=== PATIENT | male | born 2000 | race Two or more races ===

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

== ENCOUNTER 2022-10-21 19:38 | Emergency (ER) | payer OTHER, SELFPAY ==
[2022-10-21 21:09] VITALS: BP 110/62; PULSE 72; RESP 18; TEMP 37.2; O2SAT 72; BMI 28.8
[2022-10-21 22:15] LABS: Alanine Aminotransferase 42 U/L (0-40); Albumin Level 4.6 g/dL (3.5-5.0); Alkaline Phosphatase 74 U/L (39-117); Anion Gap 13 (12-20); Aspartate Amino Transferase 34 U/L (5-37); Bilirubin Total 1.3 mg/dL (0.0-1.0); Blood Urea Nitrogen 10 mg/dL (9-16); Calcium 9.7 mg/dL (8.4-10.2); Carbon Dioxide 22 mmol/L (22-29); Chloride 108 mmol/L (96-108); Creatinine Clr Calc Pharmacy 137.9; Estimated Glomerular Filt Rate > 60; Glucose Random 86 mg/dL (60-115); Potassium 3.9 mmol/L (3.3-5.1); Sodium 139 mmol/L (135-145); Total Protein 7.6 g/dL (6.5-8.0)
[2022-10-21 22:27] LABS: Basophils Percent Auto 0.4 % (0-2); Eosinophils Absolute Auto 0.3 X10*3/uL (0.0-0.4); Eosinophils Percent Auto 3.1 % (0-4); Hematocrit 38.7 % (42.0-52.0); Hemoglobin 11.6 g/dl (14.0-18.0); Imm Gran Abs Auto 0.02 X10*3/uL (0.00-0.03); Imm Gran Pct Auto 0.2 % (0.0-0.4); Lymphocytes Absolute Auto 2.4 X10*3/uL (1.2-4.9); Lymphocytes Percent Auto 26.1 % (20-40); MANUAL DIFF FLAG SCAN; Mean Corpuscular Hemoglobin 18.1 pg (27.0-33.0); Monocytes Percent Auto 10.4 % (2-11); NRBC Pct Auto 0.2 /100WBC (0.0-0.2); Neutrophils Absolute Auto 5.6 x10*3/uL (2.0-8.3); Neutrophils Percent Auto 59.8 % (45-73); PLT CLUMP 1; Red Blood Count 6.42 X10*6/uL (4.60-5.80); Red Cell Distribution Width 18.2 % (11.0-16.0); SCAN SMEAR FLAG 1
[2022-10-21 22:49] LABS: Mean Corpuscular Volume 60.3 fL (80.0-98.0)
[2022-10-21 22:50] LABS: Platelet Count 239 X10*3/uL (160-400); White Blood Count 9.3 X10*3/uL (4.8-10.8)
[2022-10-21 22:52] LABS: SLIDE REVIEW VERIFIED
--- NOTE | 2022-10-22 01:35 | ED.SKABFB ---
HPI - Skin/Abscess/Foreign Bdy General Chief complaint: Skin/Abscess/Foreign Body Stated complaint: Abscess on stomach Time Seen by Provider: 10/22/22 01:18 Source: patient Mode of arrival: ambulatory Limitations: no limitations History of Present Illness HPI narrative: 22 yo male no sig PMH here with c/o abdominal wall infection - has been on doxycycline for a couple of days and told to put warm compresses on lesion. He had plucked two ingrown hairs out and then lesion developed. He started the doxy and then the pustule erupted and he has drainage. UC started the antibiotics. He feels okay but they wanted a second opinion as the pustule opened and they thought the doxy made it happen and that was bad. MD complaint: abscess/boil Onset (ago): day(s) (3) Tetanus up to date: yes Location: generalized (abdomen) Severity: moderate Quality: aching and constant Pain Consistency: intermittent Relieving factors: rest Exacerbating factors: palpation Context: recent antibiotic Associated symptoms: denies other symptoms Treatments prior to arrival: bandages, attempted to drain pus at home and antibiotic Related Data Previous Rx's Medication Instructions Recorded permethrin 5 % topical cream 1 appl topical ONCE 1 day #60 grams 01/12/20 hydrocortisone 2.5 % topical 1 appl topical BID #453.6 grams 03/09/20 ointment albuterol sulfate 90 mcg/actuation 2 puff inhalation Q4-6H PRN 09/13/20 aerosol inhaler (ProAir HFA) shortness of breath or wheezing #8.5 grams erythromycin 5 mg/gram (0.5 %) eye 0.5 inch ophthalmic (eye) TID #1 g 11/24/20 ointment sulfamethoxazole 800 1 tab PO BID 7 days #14 tabs 02/16/21 mg-trimethoprim 160 mg tablet (Bactrim DS) naproxen 375 mg tablet 375 mg PO BID PRN pain 10 days #20 05/24/21 tabs ibuprofen 600 mg tablet 600 mg PO Q6H PRN pain #20 tabs 07/01/21 ketoconazole 2 % shampoo 1 appl topical 2XW 2 weeks #120 mL 12/05/21 cephalexin 500 mg capsule 500 mg PO QID 7 days #28 caps 10/22/22 Allergies Allergy/AdvReac Type Severity Reaction Status Date / Time amoxicillin [AMOXICILLIN] Allergy Unknown UNKNOWN, Verified 02/21/22 09:58 hives Review of Systems Review of Systems: Constitutional : No Fever, No Chills ENT/Mouth : No sore throat, No Rhinorrhea Eyes: No Eye Pain, No Swelling, No Redness Cardiovascular : No Chest Pain, No SOB Respiratory : No Cough, No Sputum Gastrointestinal : No Nausea, No Vomiting, No Diarrhea, No abdominal Pain Genitourinary : No Dysuria, No Hematuria Musculoskeletal : No joint pain, No Myalgias, No Joint Swelling Skin : pos Skin Lesions, positive skin rash Neuro : No Weakness, No Numbness, No Headache Psych : No Anxiety, No Depression All other systems reviewed and are negative [facility] Past Medical History Attestation statement: The following information was validated with the patient. Medical History Asthma COVID-19 vaccine administered No known health problems Surgical History No pertinent past surgical history Family History Family History (Updated 02/21/22 @ 09:57 by Miriam Santos MA) Mother No problems noted. Father No problems noted. Social History Social History Household Members: Family Housing: Apartment Are you a primary day care provider to a significant other at home: No Do you presently have visiting nurse or other home services: No Advance Directives: No Advance Directives Information Provided: No Cognitive needs: No Hearing needs: No Vision needs: No Physical Exam Vital Signs: Vital Signs: Last Vital Signs Temp 99.0 F 10/21/22 21:09 Pulse 72 10/21/22 21:09 Resp 18 10/21/22 21:09 BP 110/62 10/21/22 21:09 Pulse Ox 72 L 10/21/22 21:09 O2 Del Method Room Air 10/21/22 21:09 BMI result Body Mass Index 28.8 Appearance: Alert. Oriented X3. No acute distress. Eyes: Pupils equal, round and reactive to light. ENT: Pharynx normal. Neck: Normal inspection. Neck supple. CVS: Normal heart rate and rhythm. Pulses normal. Respiratory: No respiratory distress. Breath sounds normal. Abdomen: Soft and 3cm area firm indurated no ext cellulitis open dime sized draining area ss no fluctuance no sig warmth or erythema Skin: Skin warm and dry. Normal skin color. Normal skin turgor. Extremities: No lower extremity edema. Neuro: Oriented X 3. No motor deficit. No sensory deficit. Medical Decision Making Medical Decision Making [facility] Narrative: 22 yo male draining abscess on abdominal wall not toxic no systemic symptoms about 3cm indurated skin lesion but no fluctuance and no further purulence noted. he is not toxic, well hyrdated. He can be started on cephalexin and continue doxy - send home with precautions. I can feel entirety of area doubt any deep extension. Differential Diagnosis Differential Diagnoses: The differential diagnosis associated with the presentation includes abscess, cellulitis Admission/Observation Consideration of admission/observation: Escalation of care including admission/observation considered not toxic, no systemic symptoms, draining wound and can tolerate PO stable for outpatient management Lab Data 10/21/22 21:47 10/21/22 21:47 Labs: Lab Results 10/21/22 Range/Units 21:47 WBC 9.3 (4.8-10.8) X10*3/uL RBC 6.42 H (4.60-5.80) X10*6/uL Hgb 11.6 L (14.0-18.0) g/dl Hct 38.7 L (42.0-52.0) % MCV 60.3 L (80.0-98.0) fL MCH 18.1 L (27.0-33.0) pg MCHC 30.0 L (31.0-36.0) g/dl RDW 18.2 H (11.0-16.0) % Plt Count 239 (160-400) X10*3/uL MPV Not Reportable Immature Gran % (Auto) 0.2 (0.0-0.4) % Neut % (Auto) 59.8 (45-73) % Lymph % (Auto) 26.1 (20-40) % [place] % (Auto) 10.4 (2-11) % Eos % (Auto) 3.1 (0-4) % Baso % (Auto) 0.4 (0-2) % Lymph # (Auto) 2.4 (1.2-4.9) X10*3/uL [place] # (Auto) 1.0 (0.1-1.2) X10*3/uL Eos # (Auto) 0.3 (0.0-0.4) X10*3/uL Baso # (Auto) 0.0 (0.0-0.2) X10*3/uL Abs Immat Gran (auto) 0.02 (0.00-0.03) X10*3/uL Absolute Neuts (auto) 5.6 (2.0-8.3) x10*3/uL Absolute Nucleated RBC 0.020 H (0.0-0.012) X10*3/uL Nucleated RBC % (auto) 0.2 (0.0-0.2) /100WBC Smear Tech's Comments VERIFIED Sodium 139 (135-145) mmol/L Potassium 3.9 (3.3-5.1) mmol/L Chloride 108 (96-108) mmol/L Carbon Dioxide 22 (22-29) mmol/L Anion Gap 13 (12-20) BUN 10 (9-16) mg/dL Creatinine 0.94 (0.5-1.4) mg/dL Estim Creat Clear Calc 137.9 Estimated GFR > 60 Random Glucose 86 (60-115) mg/dL Calcium 9.7 (8.4-10.2) mg/dL Total Bilirubin 1.3 H (0.0-1.0) mg/dL AST 34 (5-37) U/L ALT 42 H (0-40) U/L Alkaline Phosphatase 74 (39-117) U/L Total Protein 7.6 (6.5-8.0) g/dL Albumin 4.6 (3.5-5.0) g/dL Independent Historian Clinical information obtained from an independent historian. History obtained from or confirmed by: Spouse External Record Review External record reviewed: Inpatient record Tests considered The following testing was considered but not selected: labs - but not toxic of note O2 sat was in error Prescription Management I considered prescription management with: Antibiotic (added on cephalexin) Discharge Plan Discharge Clinical Impression: Abscess of skin or subcutaneous tissue Qualifiers: Site of cutaneous abscess: trunk Site of cutaneous abscess of trunk: abdominal wall Qualified Code(s): L02.211 - Cutaneous abscess of abdominal wall Patient Disposition: Home, Self-Care Instructions: Abscess (ED) Additional Instructions: finish the doxycycline. take this antibiotic as well. take a probiotic while on antibiotic. it is okay to shower only. the wound will close on its own in a couple of weeks. monitor for fevers, vomiting, increased swelling, redness, or any other concerns. using clean warm compresses will help Prescriptions: New cephalexin 500 mg capsule 500 mg PO QID 7 Days Qty: 28 0RF No Action albuterol sulfate [ProAir HFA] 90 mcg/actuation HFA aerosol inhaler 2 puff inhalation Q4-6H PRN (Reason: shortness of breath or wheezing) Qty: 8.5 0RF naproxen 375 mg tablet 375 mg PO BID PRN (Reason: pain) 10 Days Qty: 20 0RF erythromycin 5 mg/gram (0.5 %) ointment 0.5 inch ophthalmic (eye) TID Qty: 1 0RF ibuprofen 600 mg tablet 600 mg PO Q6H PRN (Reason: pain) Qty: 20 0RF permethrin 5 % cream 1 appl topical ONCE 1 Days Qty: 60 0RF Rx Instructions: apply to entire body from head to toe and leave on for 8-14 hours then wash off. hydrocortisone 2.5 % ointment 1 appl topical BID Qty: 453.6 1RF sulfamethoxazole-trimethoprim [Bactrim DS] 800-160 mg tablet 1 tab PO BID 7 Days Qty: 14 0RF ketoconazole 2 % shampoo 1 appl topical 2XW 14 Days Qty: 120 0RF
[2022-10-22 01:39] VITALS: O2SAT 97
[2022-10-22] MEDS: cephALEXin 500 MG CAPSULE PO (02:36)
== END 2022-10-22 02:40 | disposition home or self-care (01) ==
PROVIDERS: Emergency Provider Emergency Medicine; PCP Physician Assistant
DX: L02.211 Cutaneous abscess of abdominal wall (principal)
CPT/HCPCS: 36415; 80053; 85025; 99282; 99283

== ENCOUNTER 2023-06-24 18:57 | Emergency (ER) | payer OTHER, SELFPAY ==
[2023-06-24 19:17] VITALS: BP 119/71; PULSE 88; RESP 16; TEMP 37.2; O2SAT 98; BMI 31.0
--- NOTE | 2023-06-24 19:21 | ED_ITS ---
HPI - General Adult General Chief complaint: Ear Problems Stated complaint: left ear pain Time Seen by Provider: 06/24/23 19:21 Source: patient and family (patient's mother) Mode of arrival: ambulatory Limitations: no limitations History of Present Illness HPI narrative: Patient is a 22 year old assigned male at with a history of frequent ear infections presenting to the emergency department today with left ear pain. Patient states that starting this morning he began to have left ear pain. Patient denies any dizziness, lightheadedness, abdominal pain, nausea, vomiting, fever, chills, blurry vision, double vision, loss of vision, chest pain, difficulty breathing, shortness of breath, back pain, night sweats, pain with urination, increased urinary frequency, increased urinary urgency, blood in his urine or stool, syncope or a near syncopal episode, recent trauma or falls, bowel incontinence, bladder incontinence, bowel retention, bladder retention, or any other complaints at this time. Onset (ago): hour(s) Location: left (ear) Radiation: non-radiation Severity: mild Severity scale (1-10): 4 Quality: aching and dull Pain Consistency: constant Relieving factors: none Exacerbating factors: none Associated symptoms: denies other symptoms Treatments prior to arrival: none Related Data Previous Rx's ?Medication ?Instructions ?Recorded permethrin 5 % topical cream 1 appl topical ONCE 1 day #60 grams 01/12/20 hydrocortisone 2.5 % topical 1 appl topical BID #453.6 grams 03/09/20 ointment albuterol sulfate 90 mcg/actuation 2 puff inhalation Q4-6H PRN 09/13/20 aerosol inhaler (ProAir HFA) shortness of breath or wheezing #8.5 grams erythromycin 5 mg/gram (0.5 %) eye 0.5 inch ophthalmic (eye) TID #1 g 11/24/20 ointment sulfamethoxazole 800 1 tab PO BID 7 days #14 tabs 02/16/21 mg-trimethoprim 160 mg tablet (Bactrim DS) naproxen 375 mg tablet 375 mg PO BID PRN pain 10 days #20 05/24/21 tabs ibuprofen 600 mg tablet 600 mg PO Q6H PRN pain #20 tabs 07/01/21 ketoconazole 2 % shampoo 1 appl topical 2XW 2 weeks #120 mL 12/05/21 cephalexin 500 mg capsule 500 mg PO QID 7 days #28 caps 10/22/22 cephalexin 500 mg capsule 500 mg PO Q6H 7 days #28 caps 06/24/23 Allergies Allergy/AdvReac Type Severity Reaction Status Date / Time amoxicillin [AMOXICILLIN] Allergy Unknown UNKNOWN, Verified 06/24/23 19:20 hives Review of Systems Constitutional: Constitutional: Reports no additional constitutional complaints, Denies chills, Denies fever(s) and Denies night sweats Eyes: Eyes: Reports no additional eye complaints, Denies blurry vision, Denies change in vision, Denies diplopia, Denies eye discharge, Denies loss of vision and Denies eye pain ENT: Denies dizziness Comments: left ear pain Cardiovascular: Cardiovascular: Reports no additional cardiovascular complaints, Denies chest pain, Denies lightheadedness, Denies Loss of Consciousness and Denies dyspnea Respiratory: Respiratory: Reports no additional respiratory complaints and Denies dyspnea Gastrointestinal: Gastrointestinal: Reports no additional gastrointestinal complaints, Denies abdominal pain, Denies melena, Denies hematochezia, Denies change in bowel habits and Denies change in stool character Genitourinary: Genitourinary: Reports no additional male genitourinary complaints, Denies hematuria, Denies oliguria, Denies difficulty urinating, Denies dysuria, Denies urinary frequency, Denies urinary hesitancy, Denies urinary incontinence and Denies urinary urgency Musculoskeletal: Musculoskeletal: Reports no additional musculoskeletal complaints, Denies numbness and Denies tingling Neurologic: Denies dizziness, Denies loss of vision, Denies numbness and Denies tingling Psychiatric: Psychiatric: Reports no additional psychiatric complaints Endocrine: Endocrine: Reports no additional endocrine complaints Hematologic/Lymphatic: Hematologic/Lymphatic: Reports no additional hematologic/lymphatic complaints Allergic/Immunologic: Allergic/Immunologic: Reports no additional allergic/immunologic complaints PMFSH Past Medical History Attestation statement: The following information was validated with the patient. (patient's mother validated all information) Source: old records reviewed, obtained from family (patient's mother provided additional history and confirmed the history provided by the patient) and nursing notes reviewed Medical History Asthma COVID-19 vaccine administered No known health problems Surgical History No pertinent past surgical history Family History Family History Mother No problems noted. Father No problems noted. Social History Social History Household Members: Family Housing: Apartment Are you a primary home care chaplain to a significant other at home: No Do you presently have visiting nurse or other home services: No Advance Directives: No Advance Directives Information Provided: No Do you have a plan to hurt others: No Plan Cognitive needs: No Hearing needs: No Vision needs: No Physical Exam ED Vital Signs: Vital Signs - 24 hr 06/24/23 19:17 Temperature 98.9 F Pulse Rate 88 Respiratory Rate 16 Blood Pressure 119/71 Pulse Oximetry 98 Oxygen Delivery Method Room Air BMI result Body Mass Index 31.0 Const General: cooperative, no acute distress, alert and awake Nutritional Appearance: well nourished Orientation/consciousness: patient oriented x3 Limitations: no limitations HENMT Head: Yes normal to inspection and Yes atraumatic Ears: hearing grossly normal bilaterally, external ears normal and TM abnormal erythematous on the left General nose exam: Normal external nose present, no nasal discharge noted and no epistaxis Face and sinus: Yes normal facial exam, No abrasion and No laceration Mouth: Normal oral and palatal mucosa present, no drooling and no muffled voice Eyes General: appearance normal, both eyes and all related structures Periorbital: periorbital findings normal Eyelids: Yes eyelids normal Conjunctivae: conjunctivae normal Pupils: Equal, round and reactive pupils present EOM: EOMs intact bilaterally Neck Neck: Yes normal visual inspection, Yes full ROM and Yes no lymphadenopathy Chest Chest palpation & inspection: normal inspection of the chest Resp Effort & Inspection: normal respiratory effort and able to speak in complete sentences GI Inspection: Yes normal to inspection Neuro General: patient oriented x3 and moves all extremities Cranial nerves: Yes Equal, round and reactive pupils present Cognition (Neuro): normal cognition Motor exam (neuro): 5/5 motor strength present throughout Sensory Exam: Normal double simultaneous stimulation for sensation Coordination: [id number] test normal Extrem General: Yes normal to inspection, Yes full ROM and Yes capillary refill normal Psych Appearance: grossly normal Mental Status: mental status grossly normal Affect: normal affect Attitude: cooperative Thought process: Normal thought process present Thought content: Normal thought content present Insight: Good insight present (Psych) Medical Decision Making Medical Decision Making MDM Narrative: Patient is a 22 year old assigned male at with a history of frequent ear infections presenting to the emergency department today with left ear pain. Patient's physical exam showed an erythematous left TM. I explained my physical exam findings to the patient and the patient's mother. I answered all questions asked by the patient and the patient's mother. I stressed the importance of the patient taking his medication as prescribed. I stressed the importance of the patient following up with his primary care provider. I stressed the importance of the patient returning to the emergency department immediately if his symptoms were to worsen or if he were to develop any dizziness, shortness of breath, difficulty breathing, chest pain, blurry vision, loss of vision, nausea, vomiting, abdominal pain, fever, chills, back pain, or any other complaints. Patient and the patient's mother verbalized agreement and understanding with this treatment plan and discharge. Differential Diagnosis Differential Diagnoses: The differential diagnosis associated with the presentation includes Left otitis media Otitis media Earache Otitis externa Admission/Observation Consideration of admission/observation: Escalation of care including admission/observation considered Patient would have been admitted to the hospital had his clinical presentation warranted hospital admission. Independent Historian Clinical information obtained from an independent historian. History obtained from or confirmed by: Parent (patient's mother provided additional history and confirmed the history provided by the patient.) Prescription Management I considered prescription management with: Antibiotic (patient prescribed an antibiotic for left otitis media) Discharge Plan Discharge Clinical Impression: Otitis media Patient Disposition: Home, Self-Care Instructions: Ear Infection (ED) Additional Instructions: Take your antibiotic as prescribed. Follow up with your primary care provider. Return to the emergency department immediately if your symptoms worsen or if you develop any dizziness, shortness of breath, difficulty breathing, chest pain, blurry vision, loss of vision, nausea, vomiting, abdominal pain, fever, chills, back pain, or any other complaints. Prescriptions: New cephalexin 500 mg capsule 500 mg PO Q6H 7 Days Qty: 28 0RF No Action albuterol sulfate [ProAir HFA] 90 mcg/actuation HFA aerosol inhaler 2 puff inhalation Q4-6H PRN (Reason: shortness of breath or wheezing) Qty: 8.5 0RF naproxen 375 mg tablet 375 mg PO BID PRN (Reason: pain) 10 Days Qty: 20 0RF erythromycin 5 mg/gram (0.5 %) ointment 0.5 inch ophthalmic (eye) TID Qty: 1 0RF ibuprofen 600 mg tablet 600 mg PO Q6H PRN (Reason: pain) Qty: 20 0RF cephalexin 500 mg capsule 500 mg PO QID 7 Days Qty: 28 0RF permethrin 5 % cream 1 appl topical ONCE 1 Days Qty: 60 0RF Rx Instructions: apply to entire body from head to toe and leave on for 8-14 hours then wash off. hydrocortisone 2.5 % ointment 1 appl topical BID Qty: 453.6 1RF sulfamethoxazole-trimethoprim [Bactrim DS] 800-160 mg tablet 1 tab PO BID 7 Days Qty: 14 0RF ketoconazole 2 % shampoo 1 appl topical 2XW 14 Days Qty: 120 0RF Referrals: [facility] [place] Family Medicine [Provider Group] (Call to establish and follow up with a primary care provider. If you already have a primary care provider, please fol low up with them.) [facility] [place] [facility] [Provider Group] [facility] [place] [facility] [Provider Group] Stand Alone Forms: Work/School Release Print Language: Czech
[2023-06-24 19:54] VITALS: BP 126/74; PULSE 95; RESP 16; TEMP 36.7; O2SAT 99
== END 2023-06-24 19:55 | disposition home or self-care (01) ==
PROVIDERS: Emergency Provider Emergency Medicine
DX: H66.92 Otitis media, unspecified, left ear (principal); Z79.899 Other long term (current) drug therapy
CPT/HCPCS: 99282; 99283